=== PATIENT | female | born 1985 | race African-American/Black ===

== ENCOUNTER 2021-06-23 20:33 | Emergency (ER) | payer OTHER ==
[~2021-06-23] VITALS: Ht 170.2 cm; Wt 70.8 kg
--- NOTE | 2021-06-23 20:40 | NUR ---
Pt brought back to room ED5A by imaging engineer Adrian for poss ab. Pt is otherwise healthy with no medical issues. VSS 107/71, 73bpm RRR normal s1s2 without ectopy, 98% RA, 16 rpm. Pt denies any pain, sob, n/v, dizziness or discomfort. Pt resting comfortably, already seen by EDMD and awaiting lab draw and US. No s/sx of distress.
--- NOTE | 2021-06-23 20:40 | NUR ---
senior service technician at bedside to draw RH factor and ED panel. Blood drawn without difficulty and sent to lab to be processed.
--- NOTE | 2021-06-23 20:50 | NUR ---
Pt given warm blanket and pillow and updated on status. Pt patiently awaiting US tech. all needs met, rails up, call light within reach.
[2021-06-23 21:22] LABS: HEMATOCRIT 34.2 % (31.2-41.9); MEAN CORPUSCULAR HEMOGLOBIN 24.3 uug (24.7-32.8); PLATELET COUNT (AUTO) 224 K/uL (179-408)
[2021-06-23 21:29] LABS: CREATININE 0.8 mg/dL (0.6-1.3); POTASSIUM 3.5 mmol/L (3.5-5.1)
[2021-06-23 21:40] LABS: BILIRUBIN,DIRECT 0.1 mg/dL (0.0-0.2); BILIRUBIN,TOTAL 0.3 mg/dL (0.2-1.0); TOTAL PROTEIN, SERUM 7.9 g/dL (6.4-8.2)
--- NOTE | 2021-06-23 21:49 | NUR ---
US tech at bedside to perform US.
--- NOTE | 2021-06-23 22:19 | NUR ---
US tech has just completed the US and told me that pt is not but does US does show a mass on Rt side, he doesnt think its ectopic. Will wait for radiology report.
[2021-06-23 22:23] LABS: IRON, SERUM 27 ug/dL (50-175)
--- NOTE | 2021-06-23 22:45 | NUR ---
EDMD at bedside to explain dispo to pt.
[2021-06-23] MEDS ORDERED: FERR325T23 PO (22:59)
--- NOTE | 2021-06-23 23:00 | NUR ---
Per EDMD pt to be DCed home after given aftercare and med info.
--- NOTE | 2021-06-23 23:05 | NUR ---
Pt given DC instructions and med info. Pt confirmed understanding of aftercare and med info. Pt completely healthy with no med issues, VSS, PE wnl 110/70, 99% RA, 75 bpm, 16 rpm. Pt denies any pain, sob, n/v, dizziness. no s/sx of distress noted.
[2021-06-23 23:23] VITALS: BP 110/75
== END 2021-06-23 23:05 | disposition home or self-care (01) ==
LOC: ER 20:33
DX: O03.9 Complete or unspecified spontaneous abortion without complication (principal); Z88.1 Allergy status to other antibiotic agents; O90.81 Anemia of the puerperium; D50.9 Iron deficiency anemia, unspecified
CPT/HCPCS: 36415; 76856; 83550; 85025; 86850; 86900; 86901; A4663

== ENCOUNTER 2021-11-28 20:05 | Emergency (ER) | payer OTHER ==
[~2021-11-28] VITALS: Ht 170.2 cm; Wt 69.9 kg
[~2021-11-28 20:05] MED LIST: FERR325T23 PO
--- NOTE | 2021-11-28 21:28 | NUR ---
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 Pt states she is 7 weeks .
--- NOTE | 2021-11-28 21:30 | NUR ---
Patient seen and examined by ED Dr. Muniz for MSE.
[2021-11-28 22:02] LABS: HEMATOCRIT 38.9 % (31.2-41.9); MEAN CORPUSCULAR HEMOGLOBIN 28.9 uug (24.7-32.8); MEAN CORPUSCULAR VOLUME 86.3 fL (75.5-95.3); PLATELET COUNT (AUTO) 207 K/uL (179-408)
[2021-11-28 22:09] LABS: CREATININE 0.9 mg/dL (0.6-1.3); POTASSIUM 3.6 mmol/L (3.5-5.1)
[2021-11-28 22:15] LABS: BILIRUBIN,DIRECT 0.2 mg/dL (0.0-0.2); BILIRUBIN,TOTAL 0.4 mg/dL (0.2-1.0); TOTAL PROTEIN, SERUM 7.9 g/dL (6.4-8.2)
--- NOTE | 2021-11-28 22:18 | NUR ---
Patient ambulated to bathroom with steady gait.
--- NOTE | 2021-11-28 22:20 | NUR ---
Urine sent to lab.
--- NOTE | 2021-11-28 22:22 | NUR ---
waste management recycling technician at bedside.
[2021-11-28 22:33] LABS: *BILIRUBIN,URIN NEGATIVE (NEGATIVE); *CLARITY,URINE CLEAR (CLEAR); *COLOR,URINE YELLOW (YELLOW); *KETONES,URINE NEGATIVE (NEGATIVE); *UROBILINOGEN,URINE 0.2 E.U./dl (NORMAL); LEUKOCYTE ESTERASE ,URINE NEGATIVE (NEGATIVE); NITRITE, URINE NEGATIVE (NEGATIVE); UGLUCOSE NEGATIVE (NEGATIVE)
[2021-11-28 22:34] LABS: *BLOOD, URINE TRACE (NEGATIVE); BACTERIA,URINE NONE SEEN /HPF (NONE SEEN); RBC,URINE 0-3 /HPF (0-3); SQUAMOUS EPITHELIAL CELL,UR FEW /HPF (NONE SEEN); WBC,URINE 0-3 /HPF (0-3)
--- NOTE | 2021-11-28 23:40 | NUR ---
Patient discharged to home via private vehicle in stable condition. VSS. FLOWERS. Written and verbal after care instructions given. Patient verbalizes understanding of instructions. Stressed follow up or return to ER for worsening s/s. Addendum: 11/28/21 at 2344 by [facility] with steady gait.
[2021-11-28 23:45] VITALS: BP 110/80
== END 2021-11-28 23:40 | disposition home or self-care (01) ==
LOC: ER 20:05
DX: O20.0 Threatened abortion (principal); Z3A.01 Less than 8 weeks gestation of pregnancy; Z88.1 Allergy status to other antibiotic agents; O09.521 Supervision of elderly multigravida, first trimester; O99.011 Anemia complicating pregnancy, first trimester; D50.9 Iron deficiency anemia, unspecified
CPT/HCPCS: 36415; 70030-TC; 85025; A4663; C1758